=== PATIENT | male | born 1990 | race Caucasian/White ===

== ENCOUNTER 2020-08-17 21:19 | Emergency (ER) | payer MEDICAID ==
[~2020-08-17] VITALS: Ht 172.7 cm; Wt 74.8 kg
--- NOTE | 2020-08-17 21:19 | NUR ---
Patient to ER bed 2 to gown for evaluation. Side rails up. Report given to Yaniv.
[2020-08-17 21:31] VITALS: BP_SYST 143
--- NOTE | 2020-08-17 21:35 | NUR ---
Pt walked into the ED for c/o heroin relapse and feeling terrible. Pt has a Rx for Suboxone that he stopped several weeks ago when he relapsed.
--- NOTE | 2020-08-17 21:36 | NUR ---
ER Dr. Gonzalez at bedside examining patient.
[2020-08-17] MEDS ORDERED: BUPR1FIL3 SL (21:38)
[2020-08-17] MEDS ORDERED: MORPHINE 4 MG/ML INJ. SYRINGE IM ONE (21:45)
[2020-08-17 21:50] VITALS: BP_SYST 140
--- NOTE | 2020-08-17 21:51 | NUR ---
Patient given written and verbal discharge instructions and verbalizes understanding. ER MD discussed with patient the results and treatment provided. Patient in stable condition, ambulated with a steady gait. Patient educated to follow up with PMD. Opportunity for questions provided and answered.
== END 2020-08-17 21:51 | disposition home or self-care (01) ==
LOC: SED 21:19
DX: F17.200 Nicotine dependence, unspecified, uncomplicated (principal); F11.90 Opioid use, unspecified, uncomplicated
CPT/HCPCS: 96372; 99283; J2270